=== PATIENT | female | born 1995 | race Caucasian/White ===

== ENCOUNTER 2018-10-23 18:00 | Observation (INO) | payer OTHER ==
[2018-10-23] MEDS ORDERED: PNV1TABL54 PO (18:51)
[2018-10-23 18:52] VITALS: BP 108/62
== END 2018-10-23 21:50 | disposition home or self-care (01) ==
LOC: 4S 18:00 → INTOOBSV 18:00 → OBSVTOIN 18:00
PROVIDERS: ADMIT Obstetrics & Gynecology; ATTEND Obstetrics & Gynecology
DX: O26.892 Other specified pregnancy related conditions, second trimester (principal); N89.8 Other specified noninflammatory disorders of vagina; O62.9 Abnormality of forces of labor, unspecified; Z3A.26 26 weeks gestation of pregnancy
CPT/HCPCS: 76811; 81002; 82731; G0378